=== PATIENT | female | born 1960 | race Caucasian/White ===

== ENCOUNTER → 2025-01-06 13:53 | Outpatient (REF) | payer MEDICARE, BC, OTHER, SELFPAY | LOC: HWRAD 13:53 | PROVIDERS: ATTENDING PHYSICIAN Family Medicine | DX: R05.1 Acute cough (principal) | CPT/HCPCS: 71046 ==

== ENCOUNTER → 2025-02-10 07:14 | Outpatient (REF) | payer MEDICARE, BC, OTHER, SELFPAY | LOC: RAD 07:14 | PROVIDERS: ATTENDING PHYSICIAN Internal Medicine Cardiovascular Disease; FAMILY PHYSICIAN Family Medicine | DX: M79.661 Pain in right lower leg (principal); R07.9 Chest pain, unspecified; R73.03 Prediabetes; I10 Essential (primary) hypertension; Z71.89 Other specified counseling; E78.00 Pure hypercholesterolemia, unspecified; M79.662 Pain in left lower leg | CPT/HCPCS: 75571; 93970 ==

== ENCOUNTER → 2025-03-24 09:27 | Outpatient (REF) | payer MEDICARE, BC, OTHER, SELFPAY ==
[2025-03-24 12:41] LABS: ALT (SGPT) 16 U/L (0-35); AST (SGOT) 21 U/L (14-36); Albumin 4.2 g/dl (3.5-5.0); Alkaline Phosphatase 58 U/L (38-126); Blood Urea Nitrogen 19 mg/dl (7-17); Calcium 9.1 mg/dl (8.4-10.2); Carbon Dioxide 31 mmol/L (22-30); Chloride 102 mmol/L (98-107); Glucose 103 mg/dl (70-99); Potassium 3.5 mmol/L (3.5-5.1); Sodium 140 mmol/L (135-145); Total Protein 7.2 g/dl (6.3-8.2); eGFR > 60.00
[2025-03-24 12:56] LABS: Vitamin D, 25-OH*** 37.1 ng/mL (30-80)
== END ==
LOC: HWLAB 09:27
PROVIDERS: ATTENDING PHYSICIAN Family Medicine
DX: Z98.890 Other specified postprocedural states (principal); Z86.39 Personal history of other endocrine, nutritional and metabolic disease; E89.2 Postprocedural hypoparathyroidism; E83.51 Hypocalcemia; C73 Malignant neoplasm of thyroid gland; Z79.899 Other long term (current) drug therapy; E87.6 Hypokalemia
CPT/HCPCS: 36415; 80053; 82306; 83970; 84443

== ENCOUNTER → 2025-04-14 15:21 | Outpatient (REF) | payer MEDICARE, BC, OTHER, SELFPAY | LOC: HWRCS 15:21 | PROVIDERS: ATTENDING PHYSICIAN Internal Medicine Cardiovascular Disease; FAMILY PHYSICIAN Family Medicine | DX: I10 Essential (primary) hypertension (principal); I48.91 Unspecified atrial fibrillation | CPT/HCPCS: 93306 ==

== ENCOUNTER → 2025-05-04 07:23 | Outpatient (REF) | payer MEDICARE, BC, OTHER, SELFPAY ==
[2025-05-04 10:18] LABS: TSH 3.74 uIU/ml (0.47-4.68)
== END ==
LOC: HWLAB 07:23
PROVIDERS: ATTENDING PHYSICIAN Internal Medicine Endocrinology, Diabetes & Metabolism; FAMILY PHYSICIAN Family Medicine
DX: E21.0 Primary hyperparathyroidism (principal); R91.1 Solitary pulmonary nodule; C73 Malignant neoplasm of thyroid gland
CPT/HCPCS: 36415; 84443

== ENCOUNTER → 2025-07-04 08:12 | Outpatient (REF) | payer BC, MEDICARE, OTHER, SELFPAY ==
[2025-07-04 09:08] LABS: Hematocrit 36.5 % (37.0-47.0); Hemoglobin 11.9 g/dL (12.0-16.0); Mean Corp Hgb Conc. 32.6 g/dL (33.0-37.0); Mean Corpuscular Volume 82.4 fL (81.0-99.0); Nucleated Red Blood Cells % 0 %; Platelet Count 314 10^3/uL (130-400); Red Cell Dist. Width 14.9 % (11.5-14.5)
[2025-07-04 11:24] LABS: Glycohemoglobin (HgbA1c) 6.3 % (4.0-5.9)
[2025-07-04 15:27] LABS: Ferritin 7.0 ng/ml (11.1-264.0)
[2025-07-04 15:41] LABS: Vitamin B12 742 pg/ml (239-931)
[2025-07-04 16:24] LABS: ALT (SGPT) 18 U/L (0-35); AST (SGOT) 22 U/L (14-36); Albumin 4.1 g/dl (3.5-5.0); Alkaline Phosphatase 67 U/L (38-126); Blood Urea Nitrogen 20 mg/dl (7-17); Calcium 8.8 mg/dl (8.4-10.2); Carbon Dioxide 28 mmol/L (22-30); Chloride 104 mmol/L (98-107); Glucose 96 mg/dl (70-99); HDL Cholesterol 54 mg/dl; LDL Cholesterol, Calculated 75 mg/dl; Potassium 4.6 mmol/L (3.5-5.1); Sodium 138 mmol/L (135-145); Total Protein 7.4 g/dl (6.3-8.2); Very Low Density Lipoprotein 24 mg/dl (0-30); eGFR > 60.00
[2025-07-04 16:32] LABS: Total Iron Binding Capacity 434 ug/dl (265-497)
== END ==
LOC: REG 08:12
PROVIDERS: ATTENDING PHYSICIAN Internal Medicine Endocrinology, Diabetes & Metabolism; FAMILY PHYSICIAN Family Medicine
DX: R91.1 Solitary pulmonary nodule (principal); R73.03 Prediabetes; I10 Essential (primary) hypertension; E83.51 Hypocalcemia; E78.2 Mixed hyperlipidemia; E53.8 Deficiency of other specified B group vitamins; C73 Malignant neoplasm of thyroid gland
CPT/HCPCS: 36415; 80053; 80061; 82607; 82668; 82728; 83036; 83550; 84443; 85025

== ENCOUNTER → 2025-07-15 07:30 | Outpatient (REF) | payer BC, MEDICARE, OTHER, SELFPAY | LOC: MRI 3T 07:30 | PROVIDERS: ATTENDING PHYSICIAN Psychiatry & Neurology Neurology; FAMILY PHYSICIAN Family Medicine | DX: G35.A Relapsing-remitting multiple sclerosis (principal) | CPT/HCPCS: 70553; 72156; A9575 ==